=== PATIENT | female | born 1985 | race Caucasian/White ===

== ENCOUNTER 2021-07-03 15:14 | Emergency (ER) | payer OTHER ==
[2021-07-03 17:37] LABS: BASOPHIL 0.4 % (0-2); EOSINOPHIL 1.7 % (0-5); HCT 35.1 % (37.0-47.0); HGB 12.3 g/dl (12.5-16.0); LYMPHOCYTE 20.6 % (15-48); MCH 36.4 pg (25.0-31.0); MCV 103.8 fL (78.0-100.0); MONOCYTE 5.9 % (0-12); MPV 9.5 fL (6.0-9.5); NEUTROPHIL 71.2 % (41-80); NRBC 0; PLT 230 K/uL (150-400); RBC 3.38 M/uL (4.20-5.40); RDW 13.1 % (11.5-14.0); WBC 8.4 K/uL (4.0-10.5)
[2021-07-03 18:16] LABS: ALBUMIN 3.9 g/dL (3.4-5.0); BILIRUBIN - TOTAL 0.2 mg/dL (0.2-1.0); BUN/CREAT RATIO (CALC) 13.6 RATIO; CREATININE 0.66 mg/dL (0.51-0.95); GLOBULIN (CALCULATION) 2.9 g/dL; POTASSIUM 3.3 mmol/L (3.5-5.1); TOTAL PROTEIN 6.8 g/dL (6.4-8.2)
[2021-07-03] MEDS ORDERED: NORCO 5-325 TA1 EACH PO (20:27)
[2021-07-03] MEDS ORDERED: IBUPROFEN800 MG PO (20:27)
[2021-07-03] MEDS ORDERED: CYCLOBENZAPRINE10 MG PO (20:27)
== END 2021-07-03 20:38 | disposition home or self-care (01) ==
LOC: FER 15:14
PROVIDERS: Physician Assistant
DX: S30.0XXA Contusion of lower back and pelvis, initial encounter (principal); S00.91XA Abrasion of unspecified part of head, initial encounter; F17.200 Nicotine dependence, unspecified, uncomplicated; V80.919A Animal-rider injured in unspecified transport accident, initial encounter
CPT/HCPCS: 36415; 70450; 71260; 72125; 80053; 84703; 85025; J2270; J2405; J7030; Q9967